=== PATIENT | male | born 1990 | race Caucasian/White ===

== ENCOUNTER 2018-02-21 08:15 | Emergency (ER) | payer SELFPAY ==
[~2018-02-21] VITALS: Ht 185.4 cm; Wt 69.9 kg
[~2018-02-21 08:15] MED LIST: CIPR500T2 PO; CLON.1 PO; DICL50TA3 PO; DOXY100T PO; SUBO2MIS SL
[2018-02-21 08:21] VITALS: BP 137/72; PULSE 73; RESP 16; TEMP 98.6; O2SAT 98
[2018-02-21] MEDS ORDERED: BUPR1SUB (08:33)
--- NOTE | 2018-02-21 08:58 | PD ---
HPI Chief Complaint: Injury Time Seen by Provider: 08:55 Travel History International Travel<30 days: No Contact w/Intl Traveler<30days: No Traveled to known affect area: No History of Present Illness HPI This 27-year-old male is complaining of pain in his right wrist. He says that 2 days ago he had this trouble with a lot of ice. 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 He has been stung in the hand by spines in the last couple of days. The pain is having is in the wrist and is aggravated by elevating the wrist. It is located primarily on the volar surface of the wrist. He has not been taking anything for the pain. PFSH Past Medical History Diminished Hearing: No Immunizations Current: Yes Tetanus Vaccination: < 5 Years Influenza Vaccination: No ?: Not Past Surgical History Other Surgery: Yes (hand surgery) Social History Alcohol Use: Yes (OCCASIONALLY) Tobacco Use: No (uses vap cig) Substance Use: Yes (COCAINE) Allergies-Medications (Allergen,Severity, Reaction): Coded Allergies: cortisone (Unverified Allergy, Unknown, Anaphylaxis, 02/21/18) Reported Meds & Prescriptions Reported Meds & Active Scripts Active Reported Zubsolv 0.7-0.18 mg Tablet Sl (Buprenorphine HCl/Naloxone HCl) 0.7 Mg-0.18 Mg Tab.subl 0 Review of Systems General / Constitutional: No: Fever, Chills Eyes: No: Diploplia HENT: No: Headaches Cardiovascular: No: Chest Pain or Discomfort Respiratory: No: Cough Gastrointestinal: No: Nausea Genitourinary: No: Urgency, Frequency Musculoskeletal: Positive: Pain Skin: No Rash, No Itching Neurologic: No: Weakness Physical Exam Narrative GENERAL: Male SKIN: Focused skin assessment warm/dry. There are some healing puncture wounds on the right hand HEAD: Atraumatic. Normocephalic. EYES: Pupils equal and round. No scleral icterus. No injection or drainage. ENT: No nasal bleeding or discharge. Mucous membranes pink and moist. GASTROINTESTINAL: Abdomen soft, non-tender, nondistended. Hepatic and splenic margins not palpable. MUSCULOSKELETAL: No obvious deformities. No clubbing. No cyanosis. No edema. Examination of the right hand and wrist. There is no tenderness of the hand. The wrist is tender on the volar aspect. There is no obvious swelling or erythema. He does have pain with extension of the wrist NEUROLOGICAL: Awake and alert. No obvious cranial nerve deficits. Motor grossly within normal limits. Normal speech. PSYCHIATRIC: Appropriate mood and affect; insight and judgment normal. Data Data Last Documented VS Vital Signs Date Time Temp Pulse Resp B/P (MAP) Pulse Ox O2 Delivery O2 Flow Rate FiO2 02/21/18 08:21 98.6 73 16 137/72 (93) 98 Orders Orders Wrist, Complete ([id number]) (02/21/18 08:55) MDM Medical Decision Making Medical Screen Exam Complete: Yes Emergency Medical Condition: Yes Medical Record Reviewed: Yes Differential Diagnosis Differential includes foreign body, fracture, tendinitis Narrative Course X-rays negative. Exam is consistent with tendinitis Diagnosis Primary Impression: Right wrist tendinitis Additional Instructions: Use ibuprofen for pain and inflammation Disposition: 01 DISCHARGE HOME Condition: Stable Luis Coyle MD Feb 21, 2018 08:58
--- NOTE | 2018-02-21 09:36 | RADRPT ---
EXAM DATE/TIME: 02/21/2018 09:07 [facility] COMPARISON: WRIST RIGHT COMPLETE ([id number]), June 16, 2008, 19:28. INDICATIONS : Right lateral wrist pain with no known injury. MEDICAL HISTORY : Fracture to right wrist aprox [id number] SURGICAL HISTORY : Skin graft on right fingers. ENCOUNTER: Initial ACUITY: 2 days PAIN SCORE: 8/10 LOCATION: Right lateral wrist FINDINGS: Three view examination of the right wrist demonstrates no soft tissue swelling, dislocation, or fract ure. The carpal bones are in normal alignment. The joint spaces are maintained. Bony mineralizatio n is normal. CONCLUSION: No acute fracture. Nadeem Polk MD on February 21, 2018 at 9:33 Board Certified Radiologist. This report was verified electronically.
== END 2018-02-21 10:16 | disposition home or self-care (01) ==
LOC: PHED 08:15
DX: M77.9 Enthesopathy, unspecified (principal)
CPT/HCPCS: 73110; 99283; L3908

== ENCOUNTER 2018-03-29 16:02 | Emergency (ER) | payer SELFPAY ==
[~2018-03-29] VITALS: Ht 185.4 cm; Wt 70.0 kg
[~2018-03-29 16:02] MED LIST changes: +BUPR1SUB; -CIPR500T2 PO; -CLON.1 PO; -DICL50TA3 PO; -DOXY100T PO; -SUBO2MIS SL
[2018-03-29 16:06] VITALS: BP 156/89; PULSE 96; RESP 16; TEMP 98.4; O2SAT 98
--- NOTE | 2018-03-29 17:02 | PD ---
HPI Chief Complaint: Bite or Sting Time Seen by Provider: 16:41 Travel History International Travel<30 days: No Contact w/Intl Traveler<30days: No Traveled to known affect area: No History of Present Illness HPI 27-year-old male presents emergency department evaluation of a bite that he sustained yesterday on his boat. Says that he reached under his steering column of his boat and got bit by what he believes was a spider. Says that he saw a spider that was approximately quarter size that he killed and swabbed away. Patient says that he had chills last night and the site feels unusual so decided to come in for evaluation. Patient denies numbness tingling. Denies significant pain over the area. Patient is unable to identify the site of the bite actually just points to the area where he is having some discomfort. He denies chronic medical issues medication use. PFSH Past Medical History Diminished Hearing: No Immunizations Current: Yes Past Surgical History Other Surgery: Yes (hand surgery) Social History Alcohol Use: Yes (OCCASIONALLY) Tobacco Use: No (uses vap cig) Substance Use: Yes (COCAINE) Allergies-Medications (Allergen,Severity, Reaction): Coded Allergies: cortisone (Unverified Allergy, Unknown, Anaphylaxis, 03/29/18) Reported Meds & Prescriptions Reported Meds & Active Scripts Active Keflex (Cephalexin) 500 Mg Cap 500 Mg PO Q8H 5 Days Reported Zubsolv 0.7-0.18 mg Tablet Sl (Buprenorphine HCl/Naloxone HCl) 0.7 Mg-0.18 Mg Tab.subl 0 Review of Systems Except as stated in HPI: all other systems reviewed are Neg Physical Exam Narrative GENERAL: Well-nourished, well-developed patient, in NAD SKIN: Focused skin assessment warm/dry. No rashes or lesions. HEAD: Normocephalic. Atraumatic. EYES: No scleral icterus. No injection or drainage. NECK: Supple, trachea midline. No JVD . No meningismus. CARDIOVASCULAR: Regular rate and rhythm without murmurs, gallops, or rubs. RESPIRATORY: Breath sounds equal bilaterally. No accessory muscle use. No wheezes, rales, or rhonchi MUSCULOSKELETAL: No cyanosis, or edema. Left arm mid humerus-questionable puncta without edema, erythema or exudate. Unable to identify from medically the bite location. BACK: Nontender without obvious deformity. No CVA tenderness. Data Data Last Documented VS Vital Signs Date Time Temp Pulse Resp B/P (MAP) Pulse Ox O2 Delivery O2 Flow Rate FiO2 03/29/18 16:06 98.4 96 16 156/89 (111) 98 Orders Orders Ed Discharge Order (03/29/18 17:05) MDM Medical Decision Making Medical Screen Exam Complete: Yes Emergency Medical Condition: Yes Differential Diagnosis Left arm cellulitis, erysipelas, abscess, bite Narrative Course 27-year-old male presents emergency department evaluation of a bite that he sustained yesterday on his boat. Says that he reached under his steering column of his boat and got bit by what he believes was a spider. Says that he saw a spider that was approximately quarter size that he killed and swabbed away. Patient says that he had chills last night and the site feels unusual so decided to come in for evaluation. Patient denies numbness tingling. Denies significant pain over the area. Patient is unable to identify the site of the bite actually just points to the area where he is having some discomfort. He denies chronic medical issues medication use. Vital signs are stable. Physical exam findings essentially unremarkable. He has subjective tenderness over the lateral mid humerus area without erythema, edema. Prescribed Keflex but advised not to take it unless the arm worsens. He should follow-up with his primary care physician within 2-3 days. Return for worsening or persistent symptoms. Diagnosis Primary Impression: Bite Referrals: Primary Care Physician Additional Instructions: Keep area clean dry. I recommend trying warm compresses to reduce discomfort or pain. If the warm compresses do not work, I recommend ice packs. If the site becomes more inflamed, swollen, or painful, start the keflex. Return for worsening or persistent symptoms. Scripts Cephalexin (Keflex) 500 Mg Cap 500 MG PO Q8H for Infection for 5 Days, #15 CAP 0 Refills Prov: Luis Coyle MD 03/29/18 Disposition: 01 DISCHARGE HOME Condition: Stable Nitza Stephens March 29, 2018 17:02
[2018-03-29] MEDS ORDERED: CEPH-460 PO (17:05)
== END 2018-03-29 17:13 | disposition home or self-care (01) ==
LOC: PHEFT 16:02
DX: S40.862A Insect bite (nonvenomous) of left upper arm, initial encounter (principal); W57.XXXA Bitten or stung by nonvenomous insect and other nonvenomous arthropods, initial encounter; Y93.19 Activity, other involving water and watercraft; Y92.89 Other specified places as the place of occurrence of the external cause
CPT/HCPCS: 99283